=== PATIENT | female | born 1960 | race African-American/Black ===

== ENCOUNTER 2017-06-19 14:36 | Emergency (ER) | payer BC, OTHER ==
[2017-06-19 14:53] VITALS: BP 136/72; PULSE 78; TEMP 98.1; BMI 32.1
--- NOTE | 2017-06-19 14:58 | PDOC ---
History of Present Illness - General Chief Complaint: Injury Stated Complaint: RIGHT INDEX FINGER INJURY Time Seen by Provider: 06/19/17 14:44 - History of Present Illness Initial Comments: 06/19/17 16:08 Chief complaint: Finger injury History of present illness: Crush injury at work today left index finger, distal phalanx. Numbness and tingling. Which extend up the arm. However, denies any injury to the forearm or elbow upper arm or shoulder Review of systems: As above. No other injuries Past medical history reviewed and noncontributory Social/family history also noncontributory Physical exam: Alert oriented well-developed well-nourished no acute distress cooperative Afebrile, vital signs normal Left index finger: There is tenderness over the fingernail of the distal phalanx. There is no tenderness of the volar aspect of the fingertip, the distal pulp, and no swelling, deformity, or limited motion of the joint. The distal phalanx appears to flex and extend fully against resistance, without evidence of mallet finger Impression: Crush injury, no evidence of tendon damage Plan: Tube gauze applied for cushioning and partial splinting. Ice, elevation, and Motrin. Referral to hand specialist if pain persists or any limitation of movement ensues. Patient understands and agrees and is fully ambulatory, in no significant pain or other distress upon discharge to follow-up as directed Past History - Past Medical History Allergies/Adverse Reactions: Allergies Allergy/AdvReac Type Severity Reaction Status Date / Time Iodine and Iodide Containing Allergy Intermediate Difficulty Verified 06/19/17 14:50 Produc Breathing Home Medications: Ambulatory Orders Ibuprofen 600 mg PO TID #15 tablet 06/19/17 Levothyroxine [Synthroid -] 50 mcg PO DAILY 06/19/17 Losartan Potassium 50 mg PO DAILY 06/19/17 COPD: No HTN: Yes Thyroid Disease: Yes - Suicide/Smoking/Psychosocial Hx Smoking History: Never smoked Information on smoking cessation initiated: Yes Hx Alcohol Use: No Drug/Substance Use Hx: No Substance Use Type: None *Physical Exam - Vital Signs Last Vital Signs Temp Pulse Resp BP Pulse Ox 98.1 F 78 16 136/72 99 06/19/17 14:37 06/19/17 14:37 06/19/17 14:37 06/19/17 14:37 06/19/17 14:37 *DC/Admit/Observation/Transfer Diagnosis at time of Disposition: Crush injury to finger Qualifiers: Encounter type: initial encounter Qualified Code(s): S67.10XA - Crushing injury of unspecified finger(s), initial encounter - Discharge Dispostion Disposition: HOME Condition at time of disposition: Stable Admit: No - Prescriptions Prescriptions: Ibuprofen 600 mg PO TID #15 tablet - Referrals Referrals: Bjorn Christianson MD [Staff Physician] - 1 week - Patient Instructions Printed Discharge Instructions: DI for Crush Injury Additional Instructions: Intermittent ice. Motrin. See hand specialist if pain persists one-week. - Post Discharge Activity Forms/Work/School Notes: Back to Work
== END 2017-06-19 15:30 | disposition home or self-care (01) ==
LOC: FER 14:36
DX: S67.191A Crushing injury of left index finger, initial encounter (principal); X58.XXXA Exposure to other specified factors, initial encounter; Y93.9 Activity, unspecified; Y92.9 Unspecified place or not applicable; Y99.0 Civilian activity done for income or pay
CPT/HCPCS: 73140-TC-RT-FY; 99281-25

== ENCOUNTER 2021-03-31 15:48 | Emergency (ER) | payer BC, OTHER ==
[2021-03-31 16:33] VITALS: BMI 34.3
[2021-03-31] MEDS ORDERED: ACETAMINOPHEN 500 MG TABLET (FP) PO ONE (16:33)
[2021-03-31] MEDS ORDERED: ACETAMINOPHEN 325 MG TABLET (FP) ONE (16:41)
[2021-03-31 17:02] VITALS: BP 130/68; PULSE 74; TEMP 98.7
== END 2021-03-31 19:20 | disposition home or self-care (01) ==
LOC: FER 15:48
DX: M25.561 Pain in right knee (principal); M25.562 Pain in left knee
CPT/HCPCS: 72128-TC; 72131-TC; 72170-TC-FY; 73562-TC-LT-FY; 73562-TC-RT-FY; 99284-25